=== PATIENT | female | born 1965 | race Hispanic/Latino ===

== ENCOUNTER 2018-06-16 20:30 | Emergency (ER) | payer SELFPAY ==
[2018-06-16 21:35] LABS: Hemoglobin 12.4 g/dL (12.0-16.0); Mean Corpuscular HGB CONC 34.7 g/dL (32.0-36.0); Mean Corpuscular Hemoglobin 31.7 pg (27.0-31.0); Mean Corpuscular Volume 91.2 fL (78.0-98.0); Mean Platelet Volume 5.4 fL (7.4-10.4); Platelet Count 283 thou/uL (130-400); RBC Distribution Width 12.3 % (11.5-14.5); Red Blood Cell (RBC) Count 3.92 mill/uL (4.20-5.40); White Blood Cell (WBC) Count 4.6 thou/uL (4.8-10.8)
[2018-06-16 21:57] LABS: ALT (SGPT) 24 U/L (8-55); AST (SGOT) 28 U/L (5-34); Albumin 4.1 g/dL (3.5-5.0); Alkaline Phosphatase 137 U/L (40-150); Anion Gap 12 mmol/L (10-20); BUN (Urea Nitrogen) 16 mg/dL (9.8-20.1); Bilirubin, Total Less than 0.2 mg/dL (0.2-1.2); Calc. Creatinine Clearance 0 mL/min (70-130); Carbon Dioxide 23 mmol/L (22-29); Chloride 108 mmol/L (98-107); Estimated GFR-MDRD 66; Globulin 3.4 g/dL (2.4-3.5); Glucose 88 mg/dL (70-105); Potassium 3.9 mmol/L (3.5-5.1); Protein, Total 7.5 g/dL (6.0-8.3); Sodium 139 mmol/L (136-145)
[2018-06-16 22:06] LABS: Band 1 % (5-11); Eosinophils 5 % (0-10); Lymphocytes 52 % (21-51); MDiff Complete? YES; Monocytes 8 % (0-10); Neutrophil 33 % (42-75); Reactive Lymphocytes 1 % (0-10)
[2018-06-16] MEDS ORDERED: Acetaminophen 500 MG TAB ONE (22:12)
[2018-06-16] MEDS ORDERED: Metoclopramide HCl 10 MG/2 ML VIAL ONE (22:12)
--- NOTE | 2018-06-16 22:38 | CT ---
CT HEAD NONCONTRAST: 06/16/18 HISTORY: Headache. FINDINGS: No comparison. There is no evidence of acute intracranial hemorrhage or infarct. Ventricles appear no rmal in size, shape and position. There is no mass effect or shift of midline structures. Scattered d ystrophic calcifications at the periphery of each cerebral hemisphere likely related to old cisticerc osis. IMPRESSION: No acute intracranial abnormalities are demonstrated. POS: [facility]
[2018-06-16] MEDS ORDERED: Ketorolac Tromethamine 30 MG/ML VIAL ONE (23:36)
[2018-06-16] MEDS ORDERED: Magnesium Sulfate 2 GM/100 ML BAG ONE (23:36)
[2018-06-17] MEDS ORDERED: Meclizine HCl 25 MG TAB ONE (01:11)
== END 2018-06-17 02:20 | disposition home or self-care (01) ==
LOC: ERS 20:30
DX: R51 Headache (principal); I10 Essential (primary) hypertension
CPT/HCPCS: 36415; 70450; 80053; 85025; 96365; 96367; 96375; J1885; J2765; J3475